=== PATIENT | female | born 1980 | race Caucasian/White ===

== ENCOUNTER 2017-06-01 17:56 | Emergency (ER) | payer OTHER ==
[~2017-06-01] VITALS: Ht 157.4 cm; Wt 1097.7 kg
[~2017-06-01 17:56] MED LIST: CLINDAMYCIN HC300 MG PO; MOTRIN600 MG PO; MOTRIN800 MG PO; NKHM; NORCO 5-325 TA1 EACH PO; TESSALON PERLE200 MG PO; VOLTAREN50 M1 PO; ZITHROMAX Z PA250 MG PO
[2017-06-01] MEDS ORDERED: ZITHROMAX250 MG PO (19:15)
[2017-06-01] MEDS ORDERED: PREDNISONE20 M1 PO (19:15)
[2017-06-01] MEDS ORDERED: ROBITUSSIN DM 101 OZ PO (19:15)
== END 2017-06-01 19:19 | disposition home or self-care (01) ==
LOC: ED 17:56
DX: J20.9 Acute bronchitis, unspecified (principal); R50.9 Fever, unspecified

== ENCOUNTER 2017-09-15 18:03 | Emergency (ER) | payer OTHER ==
[~2017-09-15] VITALS: Wt 108.9 kg
[~2017-09-15 18:03] MED LIST changes: +PREDNISONE20 M1 PO; +ROBITUSSIN DM 101 OZ PO; +ZITHROMAX250 MG PO
[2017-09-15] MEDS ORDERED: CYCLOBENZAPRINE5 M3 PO (20:39)
[2017-09-15] MEDS ORDERED: NAPROSYN500 MG PO (20:39)
== END 2017-09-15 20:44 | disposition home or self-care (01) ==
LOC: ED 18:03
DX: S16.1XXA Strain of muscle, fascia and tendon at neck level, initial encounter (principal); S39.012A Strain of muscle, fascia and tendon of lower back, initial encounter; S40.021A Contusion of right upper arm, initial encounter; Z79.899 Other long term (current) drug therapy; V49.59XA Passenger injured in collision with other motor vehicles in traffic accident, initial encounter; Y93.89 Activity, other specified; Y92.89 Other specified places as the place of occurrence of the external cause; Y99.9 Unspecified external cause status

== ENCOUNTER 2020-07-20 11:05 | Emergency (ER) | payer BC, OTHER ==
[~2020-07-20] VITALS: Ht 157.4 cm; Wt 108.9 kg
[~2020-07-20 11:05] MED LIST changes: +CYCLOBENZAPRINE5 M3 PO; +NAPROSYN500 MG PO
[2020-07-20] MEDS ORDERED: EC NAPROSYN500 MG PO (13:34)
== END 2020-07-20 13:40 | disposition home or self-care (01) ==
LOC: ED 11:05
DX: S99.921A Unspecified injury of right foot, initial encounter (principal); Z79.899 Other long term (current) drug therapy; X58.XXXA Exposure to other specified factors, initial encounter; Y93.89 Activity, other specified; Y92.89 Other specified places as the place of occurrence of the external cause; Y99.8 Other external cause status

== ENCOUNTER → 2021-07-30 | Outpatient (CLI) | payer BC, OTHER ==
[~2021-07-30] MED LIST changes: +EC NAPROSYN500 MG PO
== END | disposition home or self-care (01) ==
LOC: RAD 15:38
PROVIDERS: ATTEND Nurse Practitioner Family
DX: N20.0 Calculus of kidney (principal); R31.9 Hematuria, unspecified; J06.9 Acute upper respiratory infection, unspecified

== ENCOUNTER → 2022-01-15 | Outpatient (CLI) | payer BC, OTHER | END | disposition home or self-care (01) | LOC: RAD 12:28 | PROVIDERS: ATTEND Nurse Practitioner Family | DX: J98.4 Other disorders of lung (principal); R05.9 Cough, unspecified ==

== ENCOUNTER 2022-06-30 19:52 | Emergency (ER) | payer BC, OTHER | END 2022-06-30 21:54 | disposition left against medical advice (07) | LOC: ED 19:52 | DX: Z53.21 Procedure and treatment not carried out due to patient leaving prior to being seen by health care provider (principal) ==

== ENCOUNTER → 2022-09-18 | Day surgery (SDC) | payer BC, OTHER ==
[~2022-09-18] VITALS: Ht 154.9 cm; Wt 124.3 kg
[~2022-09-18] MED LIST changes: +ASPIRIN81 M1 PO; +HYDROCODONE-AC1 EAC1 PO
[2022-09-18 08:55] VITALS: BP 121/73
[2022-09-18 10:25] VITALS: BP 103/64
[2022-09-18 10:40] VITALS: BP 100/61
[2022-09-18 10:53] VITALS: BP 103/64
== END | disposition home or self-care (01) ==
LOC: SDC 09-15 08:45
PROVIDERS: ATTEND Surgery
DX: R23.9 Unspecified skin changes (principal); D22.62 Melanocytic nevi of left upper limb, including shoulder; Z98.890 Other specified postprocedural states; Z79.82 Long term (current) use of aspirin; Z79.899 Other long term (current) drug therapy

== ENCOUNTER → 2022-09-29 | Outpatient (CLI) | payer BC, OTHER | END | disposition home or self-care (01) | LOC: MAMMO 09-22 11:00 | PROVIDERS: ATTEND Nurse Practitioner Family | DX: Z12.31 Encounter for screening mammogram for malignant neoplasm of breast (principal) ==

== ENCOUNTER 2023-05-16 18:19 | Emergency (ER) | payer BC, OTHER | END 2023-05-16 18:53 | disposition left against medical advice (07) | LOC: ED 18:19 | DX: M25.512 Pain in left shoulder (principal); Z53.21 Procedure and treatment not carried out due to patient leaving prior to being seen by health care provider ==

== ENCOUNTER 2024-05-10 17:02 | Emergency (ER) | payer OTHER ==
[~2024-05-10] VITALS: Ht 154.9 cm; Wt 108.9 kg
== END 2024-05-10 18:27 | disposition left against medical advice (07) ==
LOC: ED 17:02
DX: R32 Unspecified urinary incontinence (principal); Z53.29 Procedure and treatment not carried out because of patient's decision for other reasons

== ENCOUNTER 2024-05-14 22:08 | Emergency (ER) | payer OTHER ==
[~2024-05-14] VITALS: Ht 154.9 cm; Wt 122.5 kg
[2024-05-15 01:02] LABS: HEMATOCRIT 40.2 % (37.0-47.0); MEAN CELL VOLUME 83.6 fl (81.0-99.0); MEAN CORPUSCULAR HGB 27.9 pg (27.0-31.0); MEAN CORPUSCULAR HGB CONC 33.3 g/dl (33.0-37.0); MEAN PLATELET VOLUME 10.4 fl (9.6-12.3); PLATELET COUNT AUTOMATED 194 10*3/uL (130-400); RED BLOOD COUNT 4.81 10*6/uL (4.10-5.10); RED CELL DISTRI WIDTH 13.6 % (0-14.5); WHITE BLOOD COUNT 12.9 10*3/uL (4.8-10.8)
[2024-05-15 01:07] LABS: MANUAL DIFF REFLEX YES
[2024-05-15 01:21] LABS: BUN 11 mg/dl (9-23); CHLORIDE 102 mmol/L (98-107); POTASSIUM 3.7 mmol/L (3.4-5.1)
[2024-05-15 01:23] LABS: BASOPHILS 1 % (0-1); PLATELET SUFFICIENCY NORMAL (NORMAL); TOTAL CELLS COUNTED 100 #CELLS
[2024-05-15 01:56] LABS: BILIRUBIN 1+ (Negative); BLOOD 1+ (Negative); CLARITY Cloudy (Clear); COLOR Dark Yellow (Yellow); GLUCOSE Negative (Negative); KETONE 1+ (Negative); LEUKO ESTERASE 1+ (Negative); NITRITE Negative (Negative); PH 6.5 (4.5-8.0); SPECIFIC GRAVITY 1.015 (1.001-1.030)
[2024-05-15 02:10] LABS: BACTERIA TRACE; EPITHELIAL CELLS TNTC; WBC 31-40 wbc/hpf (0-5)
[2024-05-15] MEDS ORDERED: Ceftriaxone Sodium 1 GM/10 ML SYR IV ONE (07:15)
[2024-05-15] MEDS ORDERED: MORPHINE Sulfate 2 MG/ML SYR IV ONE (07:30)
[2024-05-15] MEDS ORDERED: Ketorolac Tromethamine 15 MG/ML VIAL IV ONE (07:30)
[2024-05-15] MEDS ORDERED: SODIUM CHLORIDE 0.9% 1,000 ML IV ONE (07:30)
[2024-05-15] MEDS ORDERED: Ondansetron Hydrochloride 4 MG/2 ML VIAL IV ONE (07:30)
[2024-05-15] MEDS ORDERED: Ondansetron4 MG PO (07:34)
[2024-05-15] MEDS ORDERED: FLOMAX0.4 MG PO (07:34)
[2024-05-15] MEDS ORDERED: PERCOCET 5-3251 EACH PO (07:34)
== END 2024-05-15 07:51 | disposition home or self-care (01) ==
LOC: ED 22:08
PROVIDERS: Emergency Medicine
DX: N20.0 Calculus of kidney (principal); Z20.822 Contact with and (suspected) exposure to COVID-19; R50.9 Fever, unspecified; N39.0 Urinary tract infection, site not specified

== ENCOUNTER 2024-10-31 17:12 | Emergency (ER) | payer OTHER ==
[~2024-10-31] VITALS: Ht 154.9 cm; Wt 122.5 kg
[~2024-10-31 17:12] MED LIST changes: +FLOMAX0.4 MG PO; +Ondansetron4 MG PO; +PERCOCET 5-3251 EACH PO
[2024-10-31] MEDS ORDERED: Ketorolac Tromethamine 30 MG/ML VIAL IM ONE (18:30)
== END 2024-10-31 19:01 | disposition home or self-care (01) ==
LOC: ED 17:12
DX: S73.101A Unspecified sprain of right hip, initial encounter (principal); M25.561 Pain in right knee; M79.661 Pain in right lower leg; Z79.82 Long term (current) use of aspirin; W18.09XA Striking against other object with subsequent fall, initial encounter; Y93.89 Activity, other specified; Y92.69 Other specified industrial and construction area as the place of occurrence of the external cause; Y99.0 Civilian activity done for income or pay

== ENCOUNTER → 2025-03-08 | Outpatient (CLI) | payer OTHER ==
[2025-03-08 18:30] LABS: BASO # 0.1 10*3/uL (0.0-0.1); BASO % 0.8 % (0.0-1.0); EOS # 0.2 10*3/uL (0.0-0.4); EOS % 2.6 % (1.0-4.0); MEAN CELL VOLUME 87.6 fl (81.0-99.0); MEAN CORPUSCULAR HGB 27.3 pg (27.0-31.0); MEAN PLATELET VOLUME 11.4 fl (9.6-12.3); MONO # 0.6 10*3/uL (0.1-1.0); MONO % 7.5 % (3.0-9.0); NEUT # 4.6 10*3/uL (2.3-7.9); NEUT % 62.9 % (47.0-73.0); NUCLEATED RED BLOOD CELL 0.0 % (0.0-0.0); NUCLEATED RED BLOOD CELL 0.0 10*3/uL (0.0-0.0); PLATELET COUNT AUTOMATED 267 10*3/uL (130-400); RED CELL DISTRI WIDTH 13.9 % (0-14.5)
[2025-03-08 18:56] LABS: BUN 13 mg/dl (9-23); LDL CHOLESTEROL 122 mg/dL (9-159); SGPT/ALT 21 U/L (5-49)
== END | disposition home or self-care (01) ==
LOC: MAMMO 10:00
PROVIDERS: ATTEND Nurse Practitioner Family
DX: Z12.31 Encounter for screening mammogram for malignant neoplasm of breast (principal); R92.313 Mammographic fatty tissue density, bilateral breasts; Z13.0 Encounter for screening for diseases of the blood and blood-forming organs and certain disorders involving the immune mechanism; Z76.89 Persons encountering health services in other specified circumstances; Z13.228 Encounter for screening for other metabolic disorders; Z13.29 Encounter for screening for other suspected endocrine disorder